=== PATIENT | female | born 1965 | race Caucasian/White ===

== ENCOUNTER 2020-08-31 11:27 | Outpatient (REF) | payer MEDICAID, SELFPAY ==
--- NOTE | 2020-08-31 11:37 | MHC.AU.ANR ---
Adult Audiological Evaluation Date of Visit: 08/31/20 Reason for Appointment: Audiological evaluation due to concern for decreased hearing. Patient reports difficulties hearing and understanding in most situations. She notes that she has previously used a hearing aid in the right ear and notes that the right ear is her worse ear. She feels that the hearing in her left ear is decreasing too. She no longer has her previous hearing aid. Does patient feel they have a hearing loss?: Yes If Yes, Which Ear?: Both Ears When Was Hearing Difficulty First Noticed?: Several years ago Has hearing been tested previously?: Yes Previous Hearing Test Results: [facility], [place]- results not available to be reviewed. Hearing Handicap Inventory: HHIE SCORE: 36 Based on HHIE score, patient has: Severe perceived hearing handicap Ear History: Recent Ear Pain: Both Ears Family History of Hearing Loss?: Yes: Grandmother Ear Infections in Childhood: Both Ears Bothersome Tinnitus/Ringing/Noises in Ears: Both Ears Blocked/Full Sensation in Ear(s): Both Ears Medical History: Medical History: Dizziness/Unsteadiness, Diabetes, Headache, Head Injury, Heart Problems, High Blood Pressure, Measles, Mumps, Thyroid Disease, Tobacco Use, Vascular Problems Medical History (Other): Head injury at age 11, age 17, and age 53. Allergies: See chart Medication List: Amlodipine 5mg, Aspirin 81mg, Hydrocortisone 2.5% topical cream, Levothyroxine 0.1 mg, Omeprazole 40 mg, Vitamin D 4000 Otoscopy: Right Ear: Unremarkable Left Ear: Unremarkable Tympanometry: Tympanometry performed due to: To assess integrity of the middle ear system Right Ear: Normal Middle Ear System (Type A) Left Ear: Reduced Middle Ear Compliance (Type As) Hearing Evaluation: Transducer(s) Used: Insert Earphones, Bone Conduction Method: Conventional Audiometry Stimuli Used: Pure Tones Right Ear: Description of Hearing: Mild sloping to moderate sensorineural hearing loss from 250-8000 Hz. Left Ear: Description of Hearing: Normal hearing 250-500 Hz, sloping to a mild to moderate sensorineural hearing loss from 750-8000 Hz. Speech Recognition Threshold (SRT): Method Used: Monitored Live Voice Stimuli Used: Spondee Words Right Ear: 40 dBHL Left Ear: 30 dBHL Word Discrimination: Method: Recorded Lists Word Lists Used: NU-6 Right Ear: 80% at 80 dBHL Left Ear: 88% at 70 dBHL Recommendations: Audiological re-evaluation in one year. Trial with amplification is recommended. Medical clearance from a physician is required before fitting. See Hearing Aid Evaluation report for more information. Hearing aid(s) will be ordered after approval is received. Diagnosis: Primary Diagnosis: H90.3 Bilateral Sensorineural Hearing Loss Secondary Diagnosis: H93.13 Tinnitus, Bilateral Services Performed: Services Performed: Comprehensive Audiological Evaluation (CPT 65362) Tympanometry (CPT 04394) Signature: Provider: Estuardo Colindres, CCC-A
--- NOTE | 2020-08-31 11:38 | MHC.AU.HAS ---
Hearing Aid Evaluation Date of Visit: 08/31/20 Historical Information: Description of Hearing: Mild to moderate sensorineural hearing loss bilaterally. Summary: Patient was diagnosed with a bilateral hearing loss and binaural amplification is recommended to facilitate improved communication. Patient is interested in ADAM style hearing aids. She said that her hearing aid dome has gotten stuck in her ear in the past, so she doesn't want to use domes. Recommending custom earmolds. Hearing Aid Prescription: Based on the individual?s shared listening needs, communication environments, dexterity, desire for connectivity, and personal preferences, the following prescription for amplification has been made: Right ear: Photoengraving Finisher: Phonak Model: Audeo P70-R Battery Size: Rechargeable Color: P1- Sand Beige Enrollment Processor: Size 1 M Type of Mold: Slim tip Left ear: Left ear prescription to be same as Right Hearing Aid above: Photoengraving Finisher: Phonak Model: Audeo P70-R Battery Size: Rechargeable Color: P1- Sand Beige Enrollment Processor: 1 M Type of Mold: Slim tip Action Taken/Action Needed: Earmold Impressions Taken. Medical Clearance to be requested from PCP/ENT. Hearing Instrument Fitting to be scheduled when materials arrive. Hearing aids will be ordered once MD clearance is received. Primary Diagnosis: H90.3 Bilateral Sensorineural Hearing Loss Secondary Diagnosis: H93.13 Tinnitus, Bilateral Signature: Provider: Estuardo Colindres, [facility]
--- NOTE | 2020-08-31 11:39 | MHC.AU.MED ---
Medical Clearance for Hearing Instrumentation Date: 09/02/20 Patient Name: Addie Abarca Date of : 1965 Referring Provider: Curtis Santana MD We have seen your patient on 09/02/20 and have determined that they are a candidate for amplification (See accompanying report). Specifically, they would benefit from: Hearing aid use in both ears There is a statute that addresses Medical Evaluation Requirements prior to fitting a patient with a hearing aid. According to [place] statute 265 CMR:6.03(1), (a) General. Except as provided in 265 CMR 6.03(1)(b), a meat sales and storage manager shall not sell a hearing aid unless the prospective user has presented to the meat sales and storage manager a written statement signed by a licensed physician that states that the patient's hearing loss has been medically evaluated and the patient may be considered a candidate for a hearing aid. The medical evaluation must have taken place within the preceding six months. Please note: Due to the [place] Statute referenced above, we cannot accept a signature other than that of a licensed physician. MIXING TECHNICIAN and PA signatures cannot be accepted. I am in agreement with the above recommendation. There is no medical contraindication for hearing instrumentation. Physician Signature Date Physician Name (Printed)
== END 2020-08-31 11:28 | disposition home or self-care (01) ==
LOC: HO.SH 11:27
PROVIDERS: Visit Provider Internal Medicine Sports Medicine
DX: H91.93 Unspecified hearing loss, bilateral (principal)
CPT/HCPCS: 92557; 92567; 92591; V5275

== ENCOUNTER 2020-10-01 15:02 | Outpatient (REF) | payer MEDICAID, SELFPAY | END 2020-10-01 15:03 | disposition home or self-care (01) | LOC: HO.HAP 15:02 | PROVIDERS: Visit Provider Internal Medicine Sports Medicine | DX: H93.13 Tinnitus, bilateral (principal) | CPT/HCPCS: V5011; V5020; V5160; V5261; V5264 ==

== ENCOUNTER 2020-10-05 15:36 | Emergency (ER) | payer MEDICAID, SELFPAY ==
--- NOTE | 2020-10-05 | ECG_ITS ---
Test Reason : CHEST PAIN Blood Pressure : / mmHG Vent. Rate : 088 BPM Atrial Rate : 088 BPM P-R Int : 148 ms QRS Dur : 094 ms QT Int : 408 ms P-R-T Axes : 056 -09 053 degrees QTc Int : 493 ms Normal sinus rhythm Prolonged QT Abnormal ECG When compared to the previous EKG of No significant changes seen Referred By: Generic ED Physician Electronically Signed By:Srikanth Mathew
[2020-10-05 15:44] VITALS: BP 130/90; PULSE 96; RESP 18; TEMP 36.9; O2SAT 98; BMI 37.8
--- NOTE | 2020-10-05 16:15 | PC.NURSE ---
pt requested warm blanket, blanket given for patient comfort
--- NOTE | 2020-10-05 16:29 | PC.NURSE ---
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 ordered blood sugar as well as an ekg, will notify charge of patients demands.
[2020-10-05 16:43] LABS: Glucose, Whole Blood 183 mg/dL (60-115)
--- NOTE | 2020-10-05 17:00 | PC.NURSE ---
patient ambulated from ekg area to main ED demading to be seen, this nurse brought the patient back to the waiting room, patient stated that she used to work here and she has the right to be seen now with chest pain. pt then stated she had urinary symptoms and wanted to give a urine sample, pt given urine cup for urine sample.
[2020-10-05 17:21] LABS: Glucose Urine UA NEG (NEG); Leukocyte Esterase Urine NEG (NEG); Nitrite Urine NEG (NEG); Urine Blood TRACE (NEG); Urine Ketones NEG (NEG); Urine Protein NEG (NEG-TRACE)
[2020-10-05 17:33] LABS: Appearance Urine CLEAR; Color Urine YELLOW
[2020-10-05 17:39] LABS: Amorphous Sediment Urine TRACE /LPF; Bacteria Urine TRACE /LPF; Mucus Urine 1+ /LPF; RBC Urine 0-2 /HPF (0); Squamous Epithelial Cell Urine 1+ /LPF; WBC Urine 0 /HPF (0-4)
--- NOTE | 2020-10-05 17:55 | PC.NURSE ---
Pt pulled up to triage door while this RN was whit another patient in triage Pt stating that she was having CP and upset that she had not been called yet. It was explained to the pt that her EKG had been reviewed by a provider and that she would need to continue to wait until a bed becomes available. She would not leave the doorway and was nicely asked by this RN to go back into the waiting room as she was compromising another patient's privacy. Pt was then noted to leave through the ED exit with her family member.
--- NOTE | 2020-10-05 18:08 | PC.NURSE ---
This RN made aware of pt in WR screaming and yelling about being brought in ED after being explained flow of ED. This RN to speak to pt to again reiterate pt has one pt in front of her to be brought, warm blanket given. This RN then attempted to call pt in WR but pt not there this RN even checked outside through double doors and pt not seen. Then pt called ED to ask this nurse about being brought in and pt reports im in my car Pt educated on being in WR to be brought inside. Pt states she would come inside to WR at that time. But per Triage nurse remained agitated and sat in triage chair and refused to move, security called to assist
--- NOTE | 2020-10-05 18:15 | PC.NURSE ---
pt came back into the ED and walked into the triage office refusing to leave. Phoebe (RN) was in triage with this nurse, and we explained to the patient that she had been called for a room but had left the ED, charge nurse is aware as she had spoken with the patient via phone. The patient was asked to have a seat in the WR and she refused to leave triage, security was called to escort the patient out of triage, this nurse obtained a wheelchair due to the patients ongoing complaints. Charge was notified that the patient had returned back to the ED waiting room.
== END 2020-10-05 19:25 | disposition left against medical advice (07) ==
PROVIDERS: Emergency Provider Emergency Medicine
DX: R10.9 Unspecified abdominal pain (principal); R11.0 Nausea
CPT/HCPCS: 81001; 82947; 93005; 99283

== ENCOUNTER 2020-10-15 15:04 | Outpatient (REF) | payer MEDICAID, SELFPAY ==
--- NOTE | 2020-10-15 16:40 | MHC.AU.HFU ---
Hearing Instrument Follow-Up- Binaural Date of Visit: 10/15/20 Right Ear: Wood Heel Cementer: Phonak Model: Audeo P70-R Serial Number: [id number] Repair Warranty: 12/25/2023 Loss and Damage Warranty: 12/25/2023 Battery Size: Rechargeable Color: P1- Sand Beige Supervisor Poultry Processing: Size 0 M Type of Mold: Slim tip Type of Wax Guard: Cerushield Dispensed By: [facility] Date of Fittin10/01/2020 Left Ear: Wood Heel Cementer: Phonak Model: Audeo P70-R Serial Number: [id number] Repair Warranty: 12/25/2023 Loss and Damage Warranty: 12/25/2023 Battery Size: Rechargeable Color: P1- Sand Beige Supervisor Poultry Processing: 1 M Type of Mold: Slim tip Type of Wax Guard: Cerushield Dispensed By: [facility] Date of Fittin10/01/2020 Follow-Up Summary: Hearing aid follow-up. Patient had a number of concerns. 1. Patient worried battery isn't lasting. Says she has to charge after only 3-4 hours of use. frustrated and believes aids aren't working. After more probing, figured out patient see that battery life of the hearing aid is at 60-70% and than charges, so aids aren't actually dying after 4 hours, she just doesn't want the percentage below 60%. Advised that it is fine to let the battery go lower and there is no need to charge them until either the hearing aids completely or at night when she is going to bed. Also advised that the more streaming and cell phone use, the faster the battery will decrease in the aids. She states that she doesn't listen to much, but she has also mentioned that she plays games on her phone all day which could be making sounds and activating the Bluetooth program. In her Bluetooth settings on her phone, turned off the streaming for media audio and only kept on for call audio. 2. Patient states she can only hear when the Bluetooth is on. Tried explaining to her the the hearing aids work independently from Bluetooth. After more discussion, I think the main concern is the amplification for the Bluetooth program is louder than regular listening, and she is wanting more gain. Compared to Bluetooth setting to her Calm Situation settings, increased low frequency gain for the regular listening programs and raised to 105% gain from 100% gain. She reported improved sound quality. 3. She states that the right aid flops of the top of her ear and can be uncomfortable behind her ear at times because it moves around. Switched from a size 1 M right casino enforcement agent to a size 0 M right casino enforcement agent for an improved fit. Kept the size 1 M on the left aid as she is not having a problem with that side. 4. She notes that she often has to push the earmolds back in because the gradually slide out. Going to order remakes with canal locks. Recommendations: Recommendations (Other): Wanted to schedule another two week follow-up, but if slim tips are not in in time, will reschedule. Diagnosis Code(s): Primary Diagnosis: H90.3 Bilateral Sensorineural Hearing Loss Signature: Provider: Estuardo Colindres, CCC-A
== END 2020-10-15 15:05 | disposition home or self-care (01) ==
LOC: HO.HAP 15:04
PROVIDERS: Visit Provider Internal Medicine Sports Medicine
DX: Z13.89 Encounter for screening for other disorder (principal)

== ENCOUNTER 2020-10-29 13:50 | Outpatient (REF) | payer MEDICAID, SELFPAY | END 2020-10-29 13:51 | disposition home or self-care (01) | LOC: HO.HAP 13:50 | DX: Z13.89 Encounter for screening for other disorder (principal) ==

== ENCOUNTER 2021-05-03 13:14 | Outpatient (REF) | payer MEDICAID, SELFPAY | END 2021-05-03 13:15 | disposition home or self-care (01) | LOC: HO.HAP 13:14 | PROVIDERS: PCP Internal Medicine Sports Medicine; Visit Provider Internal Medicine Sports Medicine | DX: Z13.89 Encounter for screening for other disorder (principal) ==

== ENCOUNTER 2021-06-15 11:10 | Outpatient (REF) | payer MEDICAID, SELFPAY | END 2021-06-15 11:11 | disposition home or self-care (01) | LOC: HO.HAP 11:10 | PROVIDERS: Visit Provider Internal Medicine Sports Medicine | DX: Z46.1 Encounter for fitting and adjustment of hearing aid (principal); H90.3 Sensorineural hearing loss, bilateral | CPT/HCPCS: V5264 ==

== ENCOUNTER 2021-06-22 11:21 | Outpatient (REF) | payer MEDICAID, SELFPAY | END 2021-06-22 11:22 | disposition home or self-care (01) | LOC: HO.HAP 11:21 | PROVIDERS: Visit Provider Internal Medicine Sports Medicine | DX: Z13.89 Encounter for screening for other disorder (principal) ==

== ENCOUNTER 2021-07-16 20:49 | Emergency (ER) | payer MEDICAID, SELFPAY ==
--- NOTE | ~2021-07-16 | XR_ITS ---
EXAMINATION: XR CHEST CLINICAL INFORMATION: Chest pain COMPARISON: Chest x-ray 10/18/2017 TECHNIQUE: Frontal view of the chest was obtained. FINDINGS: No significant abnormality is noted involving the heart, lungs, mediastinum, bony thorax or soft tissues. There is a device over the left cardiac silhouette. XR/XR chest 1V IMPRESSION: No acute abnormality of chest.
--- NOTE | 2021-07-16 21:01 | ECG_ITS ---
Test Reason : CHEST PAIN Blood Pressure : / mmHG Vent. Rate : 094 BPM Atrial Rate : 094 BPM P-R Int : 150 ms QRS Dur : 096 ms QT Int : 402 ms P-R-T Axes : 058 -13 041 degrees QTc Int : 502 ms Normal sinus rhythm Moderate voltage criteria for LVH, may be normal variant ( R in aVL , Javon product ) Prolonged QT Abnormal ECG When compared to the previous EKG of No significant changes seen Referred By: Generic ED Physician Electronically Signed By:FARAZ CURTIS MD
[2021-07-16 21:16] VITALS: BP 103/88; PULSE 98; RESP 19; TEMP 36.1; O2SAT 97; BMI 37.0
[2021-07-16 21:25] LABS: MANUAL DIFF FLAG NO
[2021-07-16 21:27] LABS: Basophils Absolute Auto 0.1 X10*3/uL (0.0-0.2); Basophils Percent Auto 1.2 % (0-2); Eosinophils Absolute Auto 0.3 X10*3/uL (0.0-0.4); Eosinophils Percent Auto 2.7 % (0-4); Hemoglobin 14.4 g/dl (12.0-16.0); Imm Gran Abs Auto 0.04 X10*3/uL (0.00-0.03); Imm Gran Pct Auto 0.4 % (0.0-0.4); Lymphocytes Absolute Auto 2.9 X10*3/uL (1.2-4.9); Lymphocytes Percent Auto 31.4 % (20-40); Mean Corpuscular HGB Conc 32.7 g/dl (31.0-35.0); Mean Corpuscular Volume 85.4 fL (80.0-98.0); Mean Platelet Volume 8.9 fL (9.4-12.3); Monocytes Absolute Auto 0.7 X10*3/uL (0.1-1.2); Monocytes Percent Auto 7.7 % (2-11); Neutrophils Absolute Auto 5.2 x10*3/uL (2.0-8.3); Neutrophils Percent Auto 56.6 % (45-73); Platelet Count 303 X10*3/uL (160-400); Red Blood Count 5.15 X10*6/uL (4.20-5.50); Red Cell Distribution Width 13.1 % (11.0-16.0); White Blood Count 9.2 X10*3/uL (4.8-10.8)
[2021-07-16 21:47] LABS: Anion Gap 12 (12-20); Blood Urea Nitrogen 10 mg/dL (9-16); Calcium 9.5 mg/dL (8.4-10.2); Carbon Dioxide 28 mmol/L (22-29); Chloride 101 mmol/L (96-108); Creatinine Clr Calc Pharmacy 91.3; Estimated Glomerular Filt Rate > 60; Glucose Random 102 mg/dL (60-115); Potassium 3.7 mmol/L (3.3-5.1); Sodium 137 mmol/L (135-145)
[2021-07-16 21:52] LABS: Troponin-I High Sensitivity 4.2 ng/L (<3.5-17.0)
--- NOTE | 2021-07-16 22:16 | ED.CHESTPAIN ---
HPI - Chest Pain General Chief Complaint: Chest Pain Stated Complaint: chest pain Time Seen by Provider: 07/16/21 22:10 Source: patient Mode of arrival: ambulatory Limitations: no limitations History of Present Illness HPI narrative: Patient comes to the emergency room complaining of left-sided chest pain for over 24 hours. 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 Denies shortness of breath. Patient states that the pain is worse when she moves her arm or presses on her chest. Related Data Allergies Allergy/AdvReac Type Severity Reaction Status Date / Time lovastatin [LOVASTATIN] Allergy Severe SWELLING, Verified 05/11/21 15:03 VOMITING tuberculin, purified protein Allergy Severe SWELLING Verified 05/11/21 15:03 deriva [TB TEST] citalopram Allergy Unknown QT Verified 05/11/21 15:03 prolongation ezetimibe [Zetia] Allergy Unknown Unknown Verified 05/11/21 15:03 amoxicillin [From AUGMENTIN] AdvReac Mild ITCHY RASH Verified 05/11/21 15:03 clavulanic acid AdvReac Mild ITCHY RASH Verified 05/11/21 15:03 [From AUGMENTIN] Statins Support Allergy Intermediate Facial Uncoded 05/11/21 15:03 Swelling Review of Systems Review of Systems: Constitutional : No Weight loss, No Fever, No Chills, No Night Sweats, No Fatigue, No Malaise ENT/Mouth : No Hearing loss, No Ear Pain, No Nasal Congestion, No Sinus Pain, No Hoarseness, No sore throat, No Rhinorrhea, No Swallowing Difficulty Eyes: No Eye Pain, No Swelling, No Redness, No Foreign Body, No Discharge, No Vision Changes Cardiovascular : Complaining of left-sided chest pain with movement. No SOB, No Dyspnea on Exertion, No Orthopnea, No Edema, No Palpitations Respiratory : No Cough, No Sputum, No Wheezing, No Smoke Exposure, No Dyspnea Gastrointestinal : No Nausea, No Vomiting, No Diarrhea, No Constipation, No abdominal Pain, No Hematochezia, No Melena Genitourinary : no irregular bleeding, No Dysuria, No Urinary Frequency, No Hematuria, No Urinary Incontinence, No Urgency, No Flank Pain, No Urinary Flow Changes, No Hesitancy Musculoskeletal : No joint pain, No Myalgias, No Joint Swelling Skin : No Skin Lesions, No rash Neuro : No Weakness, No Numbness, No Paresthesias, No Loss of Consciousness, No Dizziness, No Headache Psych : No Anxiety/Panic, No Depression, No SI/HI/AH/VH, No Social Issues, Heme/Lymph: No Bruising, No Bleeding,No Lymphadenopathy Endocrine : No Polyuria, No Polydipsia, No Temperature Intolerance [facility] Past Medical History Medical History GERD (gastroesophageal reflux disease) Hernia Hypertension Murmur, cardiac Pre-diabetes Social History Social History (System 05/11/21 @ 15:03 by Karin Tinoco) Advance Directives: No Advance Directives Information Provided: Yes Physical Exam Vital Signs: Vital Signs: Last Vital Signs Temp 97 F 07/16/21 21:16 Pulse 98 07/16/21 21:16 Resp 19 07/16/21 21:16 BP 103/88 07/16/21 21:16 Pulse Ox 97 07/16/21 21:16 BMI result Body Mass Index 37.0 Const: Other: Appearance: Alert. Oriented X3. No acute distress. Eyes: Pupils equal, round and reactive to light. ENT: Pharynx normal. Neck: Normal inspection. Neck supple. No lymph nodes noted. No crepitus CVS: Normal heart rate and rhythm. Pulses normal. Normal S1 and S2. Reproducible chest pain with minimal palpation over the left side of the chest. Pain with arm movement on the left side. Respiratory: No respiratory distress. Breath sounds normal. No Wheezing. No rales Abdomen: Soft and nontender. No rigidity. No distention. Skin: Skin warm and dry. Normal skin color. Normal skin turgor. Extremities: No lower extremity edema. No Lacerations. No Rash Neuro: Oriented X 3. No motor deficit. No sensory deficit. Moving all extremities. No slurred speech. CN 2 through 12 grossly intact Psych: calm, cooperative, normal affect Course Course Course Narrative: It has been over 24 hours since the patient has been having chest pain with movement. Troponin negative, EKG does not show any acute abnormalities. Prolonged QT is chronic when compared to previous EKGs from 2020. I offered to the patient ibuprofen or Tylenol. Patient declined. I offered muscle relaxants. Patient states that she already takes muscle relaxants, patient asking for a stronger pain medication. Patient was given 1 dose of oxycodone, patient may follow up with her primary care physician and continue taking her regular medications MDM - Chest Pain Lab Data Result diagrams: 07/16/21 21:19 07/16/21 21:19 Labs: Lab Results 07/16/21 07/16/21 07/16/21 Range/Units 21:19 21:19 21:19 WBC 9.2 (4.8-10.8) X10*3/uL RBC 5.15 (4.20-5.50) X10*6/uL Hgb 14.4 (12.0-16.0) g/dl Hct 44.0 (37.0-47.0) % MCV 85.4 (80.0-98.0) fL MCH 28.0 (27.0-33.0) pg MCHC 32.7 (31.0-35.0) g/dl RDW 13.1 (11.0-16.0) % Plt Count 303 (160-400) X10*3/uL MPV 8.9 L (9.4-12.3) fL Immature Gran % (Auto) 0.4 (0.0-0.4) % Neut % (Auto) 56.6 (45-73) % Lymph % (Auto) 31.4 (20-40) % Duchesne % (Auto) 7.7 (2-11) % Eos % (Auto) 2.7 (0-4) % Baso % (Auto) 1.2 (0-2) % Lymph # (Auto) 2.9 (1.2-4.9) X10*3/uL Duchesne # (Auto) 0.7 (0.1-1.2) X10*3/uL Eos # (Auto) 0.3 (0.0-0.4) X10*3/uL Baso # (Auto) 0.1 (0.0-0.2) X10*3/uL Abs Immat Gran (auto) 0.04 H (0.00-0.03) X10*3/uL Absolute Neuts (auto) 5.2 (2.0-8.3) x10*3/uL Absolute Nucleated RBC 0.000 (0.0-0.012) X10*3/uL Nucleated RBC % (auto) 0.0 (0.0-0.2) /100WBC Sodium 137 (135-145) mmol/L Potassium 3.7 (3.3-5.1) mmol/L Chloride 101 (96-108) mmol/L Carbon Dioxide 28 (22-29) mmol/L Anion Gap 12 (12-20) BUN 10 (9-16) mg/dL Creatinine 0.78 (0.5-1.4) mg/dL Estim Creat Clear Calc 91.3 Estimated GFR > 60 Random Glucose 102 (60-115) mg/dL Calcium 9.5 (8.4-10.2) mg/dL Troponin I High Sens 4.2 (<3.5-17.0) ng/L ECG Data ECG #1: Attestation: I personally reviewed and interpreted this ECG as follows: (Sinus rhythm, heart rate 94, no ST segment depressions or elevations, no T-wave inversions, QTC 502 which is chronic) Discharge Plan Discharge Clinical Impression: Atypical chest pain Patient Disposition: Home, Self-Care Instructions: Chest Wall Pain (ED), Chest Pain (ED) Additional Instructions: Please follow-up with your primary care physician tomorrow. If you have any worsening or new symptoms, please return to the emergency room or call 911
[2021-07-16] MEDS: oxyCODONE HCl Immed Release 5 MG TABLET PO (22:24)
== END 2021-07-16 22:29 | disposition home or self-care (01) ==
PROVIDERS: Emergency Provider Emergency Medicine
DX: R07.89 Other chest pain (principal); Z79.899 Other long term (current) drug therapy
CPT/HCPCS: 36415; 71045; 80048; 84484; 85025; 93005; 99284

== ENCOUNTER 2021-08-11 09:39 | Outpatient (REF) | payer MEDICAID, SELFPAY | END 2021-08-11 09:40 | disposition home or self-care (01) | LOC: HO.HAP 09:39 | PROVIDERS: Visit Provider Internal Medicine Sports Medicine | DX: Z13.89 Encounter for screening for other disorder (principal) ==

== ENCOUNTER 2021-08-26 11:14 | Outpatient (REF) | payer MEDICAID, SELFPAY | END 2021-08-26 11:15 | disposition home or self-care (01) | LOC: HO.HAP 11:14 | PROVIDERS: PCP Internal Medicine Sports Medicine; Visit Provider Internal Medicine Sports Medicine | DX: Z46.1 Encounter for fitting and adjustment of hearing aid (principal) | CPT/HCPCS: V5264 ==